=== PATIENT | male | born 1985 | race Caucasian/White ===

== ENCOUNTER 2020-07-24 10:24 | Emergency (ER) | payer OTHER ==
[~2020-07-24] VITALS: Ht 165.1 cm; Wt 117.9 kg
[2020-07-24 10:32] VITALS: BP_SYST 126
[2020-07-24] MEDS ORDERED: DIPH-TET-PERTUS Vaccine 0.5 ML VIAL (ADACEL) I.M. ONE (11:00)
[2020-07-24] MEDS ORDERED: TOBR5DRO7 RIGHT EYE (11:34)
[2020-07-24] MEDS ORDERED: NAPR-1172 PO (11:34)
[2020-07-24 11:53] VITALS: BP_SYST 126
== END 2020-07-24 11:51 | disposition home or self-care (01) ==
LOC: SED 10:24
DX: S05.01XA Injury of conjunctiva and corneal abrasion without foreign body, right eye, initial encounter (principal); W22.8XXA Striking against or struck by other objects, initial encounter; Y93.89 Activity, other specified; Y92.89 Other specified places as the place of occurrence of the external cause; Y99.8 Other external cause status
CPT/HCPCS: 90715; 99283